=== PATIENT | male | born 1995 | race Caucasian/White ===

== ENCOUNTER 2016-10-29 11:19 | Emergency (ER) | payer MEDICAID, OTHER ==
[2016-10-29] MEDS ORDERED: LIDOCAINE 5% (700 MG) TRANSDERMAL ADH..PATCH TP ONE (12:02)
[2016-10-29] MEDS ORDERED: OXYCODONE-ACETAMINOPHEN 5-325 MG TABLET PO ONE (12:02)
--- NOTE | 2016-10-29 12:07 | ER Document Report ---
HPI - HPI Patient complains to provider of: Low back pain Onset: Other - 4 Weeks Onset/Duration: Persistent Quality of pain: Sharp Pain Level: 5 Context: Patient states that he sneezed about 2-3 months ago and had a sharp pain in his lower back. Patient states that the pain eventually resolved. Patient reports that over the past 4 weeks he has had a return of low back pain symptoms without any new precipitating event. Patient denies any urinary retention or incontinence, fever, or spinal injections. Patient denies any chronic illness. Patient reports that his pain radiates down the posterior aspect of his left lower extremity to the level of his calf but occasionally will go into the foot although does not have any pain in his foot today. Associated Symptoms: Other - Back pain. denies: Fever Exacerbated by: Movement, Walking Relieved by: Denies Similar symptoms previously: No Recently seen / treated by doctor: Yes - Saw his primary doctor who gave him Motrin to treat this - ROS ROS below otherwise negative: Yes Systems Reviewed and Negative: Yes All other systems reviewed and negative - CONSTITUTIONAL Constitutional: DENIES: Fever - NEURO Neurology: DENIES: Weakness - URINARY Urinary: DENIES: Dysuria, Urgency, Frequency - MUSCULOSKELETAL Musculoskeletal: REPORTS: Extremity pain, Back Pain. DENIES: Neck Pain - DERM Skin Color: Normal Skin Problems: None Past Medical History - General Information source: Patient - Social History Smoking Status: Never Smoker Frequency of alcohol use: None Drug Abuse: None Occupation: active duty Lives with: Family Family History: Reviewed & Not Pertinent Patient has suicidal ideation: No Patient has homicidal ideation: No - Medical History Medical History: Negative Renal/ Medical History: Denies: Hx Peritoneal Dialysis Surgical Hx: Negative Vertical Provider Document - CONSTITUTIONAL Agree With Documented VS: Yes Exam Limitations: No Limitations General Appearance: WD/WN, No Apparent Distress - INFECTION CONTROL TRAVEL OUTSIDE OF THE [place] IN LAST 30 DAYS: No - HEENT HEENT: Atraumatic, Normocephalic - NECK Neck: Normal Inspection, Supple - RESPIRATORY Respiratory: Breath Sounds Normal, No Respiratory Distress, Chest Non-Tender O2 Sat by Pulse Oximetry: 96 - CARDIOVASCULAR Cardiovascular: Regular Rate, Regular Rhythm, No Murmur - BACK Back: Abnormal Inspection - Left lower lumbar paraspinal tenderness, no step- off or deformity. negative: CVA Tenderness-Right, CVA Tenderness-Left - MUSCULOSKELETAL/EXTREMETIES Musculoskeletal/Extremeties: MAEW, FROM - NEURO Level of Consciousness: Awake, Alert, Appropriate Motor/Sensory: No Motor Deficit, No Sensory Deficit. negative: Weak Motor Strength RUE, Weak Motor Strength LUE, Weak Motor Strength RLE, Weak Motor Strength LLE Deep Tendon Reflexes: 2+ - bilateral Achilles reflexes Notes: Normal gait, no saddle anesthesia, no foot drop - DERM Integumentary: Warm, Dry, No Rash Course - Re-evaluation Re-evalutation: 10/29/16 13:38 The patient presents with low back pain without signs of spinal cord compression , cauda equina syndrome, infection, aneurysm, or other serious etiology. The patient is neurologically intact. Given the extremely risk of these diagnoses further testing and evaluation for these possibilities does not appear to be indicated at this time. Patient has been instructed to return if the symptoms worsen or change in any way. Patient reports back pain is markedly improved after pain medication. - Vital Signs Vital signs: Temp Pulse Resp BP Pulse Ox 98.5 F 88 124/80 96 10/29/16 11:43 10/29/16 11:43 10/29/16 11:43 10/29/16 11:43 - Diagnostic Test Radiology reviewed: Reports reviewed Discharge - Discharge Clinical Impression: Low back pain Qualifiers: Chronicity: acute Back pain laterality: left Sciatica presence: with sciatica Sciatica laterality: sciatica of left side Qualified Code(s): M54.42 - Lumbago with sciatica, left side Condition: Stable Disposition: HOME, SELF-CARE Instructions: Ice Packs ([facility]), Warm Packs ([facility]), Oral Narcotic Medication ([facility]) , Low Back Pain ([facility]) Additional Instructions: Return immediately for any new or worsening symptoms Followup with your primary care provider, call tomorrow to make a followup appointment You may need an MRI to further evaluate your back pain symptoms. Your primary care provider can order this test for you. Prescriptions: Methocarbamol [Robaxin 500 Mg Tablet] 500 mg PO QID PRN #40 tablet PRN Reason: Oxycodone HCl/Acetaminophen [Percocet 5-325 mg Tablet] 1 tab PO ASDIR PRN #15 tablet PRN Reason: Prednisone [Deltasone 20 mg Tablet] 3 tab PO DAILY 5 Days
--- NOTE | 2016-10-29 13:16 | RADIOLOGY REPORT (SQ) ---
EXAM DESCRIPTION: L SPINE WHOLE COMPLETED DATE/TIME: 10/29/2016 1:02 pm REASON FOR STUDY: low back pain COMPARISON: None. NUMBER OF VIEWS: Five views including obliques. TECHNIQUE: AP, lateral, oblique, and sacral radiographic images acquired of the lumbar spine. LIMITATIONS: None. FINDINGS: MINERALIZATION: Normal. SEGMENTATION: Normal. No transitional anatomy. ALIGNMENT: Normal. VERTEBRAE: Maintained height. No fracture or worrisome bone lesion. DISCS: Preserved height. No significant osteophytes or end plate irregularity. POSTERIOR ELEMENTS: Pedicles and facets are intact. No pars defect or posterior arch defects. HARDWARE: None in the spine. PARASPINAL SOFT TISSUES: Normal. PELVIS: Intact as visualized. No fractures or worrisome bone lesions. SI joints intact. OTHER: No other significant finding. IMPRESSION: NORMAL 5 VIEW LUMBAR SPINE. TECHNICAL DOCUMENTATION: JOB ID: [id number] [employer]- All Rights Reserved
[2016-10-29 13:55] VITALS: BP 129/77
== END 2016-10-29 13:48 | disposition home or self-care (01) ==
LOC: ER 11:19
DX: M54.42 Lumbago with sciatica, left side (principal); M54.2 Cervicalgia
CPT/HCPCS: 72110; 99283